=== PATIENT | male | born 1985 | race American Indian/Alaskan Native ===

== ENCOUNTER 2017-02-27 13:58 | Emergency (ER) | payer OTHER ==
[2017-02-27] MEDS ORDERED: NORCO 10/325 PO ONE (16:51)
--- NOTE | 2017-02-27 17:27 | Emergency Department Report ---
ED General Adult HPI - General Chief complaint: Pain General Stated complaint: GROIN PAIN Time Seen by Provider: 02/27/17 16:43 Source: patient Mode of arrival: Ambulatory Limitations: No Limitations - History of Present Illness Initial comments: 31 y/o male complain of right scrotum pain after attempt to lift a rock around 200 lb with 4 other individual .pt state the pain start last night with increase swelling to scrotum area .pt denies taking any otc medication .pt state pain 10/10 at present . Onset/Timin -: days(s) Location: genitals Radiation: non-radiation Severity scale (0 -10): 10 Quality: aching Consistency: constant Improves with: none Worsens with: movement Associated Symptoms: denies: denies other symptoms Treatments Prior to Arrival: none - Related Data Previous Rx's Medication Instructions Recorded Last Taken Type Doxycycline Hyclate [Doxycycline 100 mg PO Q12HR #20 tab 02/27/17 Unknown Rx Hyclate TAB] Ibuprofen [Motrin 800 MG tab] 800 mg PO Q8HR PRN #30 tablet 02/27/17 Unknown Rx Allergies Allergy/AdvReac Type Severity Reaction Status Date / Time No Known Allergies Allergy Unverified 02/27/17 14:33 ED Review of Systems ROS: Stated complaint: GROIN PAIN Other details as noted in HPI Constitutional: denies: chills, fever Eyes: denies: eye pain, eye discharge, vision change ENT: denies: ear pain, throat pain Respiratory: denies: cough, shortness of breath, wheezing Cardiovascular: denies: chest pain, palpitations Endocrine: no symptoms reported Gastrointestinal: denies: abdominal pain, nausea, diarrhea Genitourinary: testicular pain. denies: urgency, dysuria Musculoskeletal: denies: back pain, joint swelling, arthralgia Skin: denies: rash, lesions Neurological: denies: headache, weakness, paresthesias Psychiatric: denies: anxiety, depression Hematological/Lymphatic: denies: easy bleeding, easy bruising ED Past Medical Hx - Past Medical History Previous Medical History?: No - Surgical History Past Surgical History?: No - Social History Smoking Status: Current Every Day Smoker Substance Use Type: Alcohol, Marijuana, Prescribed - Medications Home Medications: Home Medications Medication Instructions Recorded Confirmed Last Taken Type Doxycycline Hyclate [Doxycycline 100 mg PO Q12HR #20 tab 02/27/17 Unknown Rx Hyclate TAB] Ibuprofen [Motrin 800 MG tab] 800 mg PO Q8HR PRN #30 tablet 02/27/17 Unknown Rx ED Physical Exam - General Limitations: No Limitations General appearance: alert, in no apparent distress - Head Head exam: Present: atraumatic, normocephalic - Eye Eye exam: Present: normal appearance - ENT ENT exam: Present: mucous membranes moist - Neck Neck exam: Present: normal inspection - Respiratory Respiratory exam: Present: normal lung sounds bilaterally. Absent: respiratory distress - Cardiovascular Cardiovascular Exam: Present: regular rate, normal rhythm. Absent: systolic murmur, diastolic murmur, rubs, gallop - GI/Abdominal GI/Abdominal exam: Present: soft, normal bowel sounds - Rectal Rectal exam: Present: deferred - exam: Present: testicular tenderness, scrotal swelling External exam: Present: swelling - Extremities Exam Extremities exam: Present: normal inspection - Back Exam Back exam: Present: normal inspection - Neurological Exam Neurological exam: Present: alert, oriented X3 - Psychiatric Psychiatric exam: Present: normal affect, normal mood - Skin Skin exam: Present: warm, dry, intact, normal color. Absent: rash ED Course Vital Signs 02/27/17 14:29 Temperature 99 F Pulse Rate 71 Respiratory 22 Rate Blood Pressure 103/78 O2 Sat by Pulse 100 Oximetry ED Medical Decision Making - Medical Decision Making Ultrasound reading acute right epididymitis pt treat with rocephin 250 mg empirical and will give doxycycline 100 mg for 10 days Pt given norco 10mg for pain .pt state pain has resolved .will give the patient give rx for NSAID UA sent to lab and Gonorrhea and chlaymdia urine sent out Critical care attestation.: If time is entered above; I have spent that time in minutes in the direct care of this critically ill patient, excluding procedure time. ED Disposition Clinical Impression: Epididymitis Disposition: DC-01 TO HOME OR SELFCARE Is pt being admited?: No Does the pt Need Aspirin: No Condition: Stable Instructions: Epididymitis (ED) Prescriptions: Doxycycline Hyclate [Doxycycline Hyclate TAB] 100 mg PO Q12HR #20 tab Ibuprofen [Motrin 800 MG tab] 800 mg PO Q8HR PRN #30 tablet PRN Reason: Pain Referrals: PRIMARY CARE, [Primary Care Provider] - 3-5 Days [facility] [Outside] - 3-5 Days Forms: STI Treatment and Prevention Time of Disposition: 18:32
--- NOTE | 2017-02-27 17:41 | Ultrasound Report ---
FINAL REPORT EXAM: US TESTICULAR DOPPLER COMP HISTORY: right testicle pain TECHNIQUE: Longitudinal and transverse grayscale, color, and Doppler sonographic images of the bilateral testicles were performed Comparison: None FINDINGS: Right testicle measures 4.8 x 2.4 x 3.3 centimeters. Left testicle measures 4.5 x 2.3 x 3.3 centimeters. Both testicles demonstrate homogeneous echogenicity and normal echotexture without intratesticular mass lesion. There is normal color flow. The right epididymal head is enlarged, measuring approximately 2 x 1.4 centimeter and hyperemic. The left epididymal head has normal size and color flow without hyperemia. There is no hydrocele. There are no varicoceles identified. IMPRESSION: Acute right epididymitis. Normal color flow of the right testicle. No evidence for testicular torsion or mass lesion.
[2017-02-27] MEDS ORDERED: XYLOCAINE 1% MPF 5 mL INFILTRATI ONE (18:18)
[2017-02-27] MEDS ORDERED: ROCEPHIN IM ONE (18:18)
[2017-02-27 18:35] LABS: Bilirubin,Urine NEG (Negative); Blood,Urine NEG (Negative); Ketones,Urine TR mg/dL (Negative); Leukocyte Esterase,Urine NEG (Negative); Mucus,Urine 3+ /HPF; Nitrite,Urine NEG (Negative)
[2017-02-27 18:59] VITALS: BP 111/67
== END 2017-02-27 19:03 | disposition home or self-care (01) ==
LOC: ED 13:58
DX: N45.1 Epididymitis (principal); F17.200 Nicotine dependence, unspecified, uncomplicated; F12.10 Cannabis abuse, uncomplicated
CPT/HCPCS: 81001; 93975; 96372; 99284; J0696

== ENCOUNTER 2017-08-12 15:22 | Emergency (ER) | payer SELFPAY ==
[2017-08-12 15:33] VITALS: BP 145/88
[2017-08-12] MEDS ORDERED: CLEOCIN IM ONE (16:56)
[2017-08-12] MEDS ORDERED: MOTRIN PO ONE (16:56)
--- NOTE | 2017-08-12 17:02 | Emergency Department Report ---
ED ENT HPI - General Chief complaint: Dental/Oral Stated complaint: ABSCESSED TOOTH Time Seen by Provider: 08/12/17 16:48 Source: patient Mode of arrival: Ambulatory Limitations: No Limitations - History of Present Illness Initial comments: This is a 31-year-old male nontoxic, well nourished in appearance, no acute signs of distress presents to the ED with c/o of right upper toothache 3 weeks. Patient denies following up with a dentist. Patient stated that pain radiates from his job to his left side of head. Patient otherwise denies any head trauma. Patient describes toothache as aching level of 8 out of 10. Patient denies any facial swelling. Patient denies any numbness, tingling, fever, chills, headache, stiff neck, abdominal pain, chest pain, shortness of breath. Patient denies any drug allergies or significant past medical history. MD complaint: tooth pain -: week(s) (3) Location: tooth # 1 - pain Severity: mild Severity scale (0 -10): 8 Quality: aching Consistency: constant Improves with: none Worsens with: none Context- Dental: history of dental caries, poor dental care Associated Symptoms: gum swelling, toothache. denies: fever, cough, pain with swallowing, sore throat, tinnitus, hearing loss, discharge from ear, rhinorrhea - Related Data Previous Rx's Medication Instructions Recorded Last Taken Type Doxycycline Hyclate [Doxycycline 100 mg PO Q12HR #20 tab 02/27/17 Unknown Rx Hyclate TAB] Ibuprofen [Motrin 800 MG tab] 800 mg PO Q8HR PRN #30 tablet 02/27/17 Unknown Rx Acetaminophen/Codeine [Tylenol 1 tab PO Q6H PRN #15 tab 08/12/17 Unknown Rx /Codeine # 3 tab] Chlorhexidine Mouthwash [Peridex] 15 ml MM BID #1 bottle 08/12/17 Unknown Rx Clindamycin [Clindamycin CAP] 300 mg PO Q6H 7 Days capsule 08/12/17 Unknown Rx Ibuprofen [Motrin] 600 mg PO Q8H PRN #30 tablet 08/12/17 Unknown Rx Allergies Allergy/AdvReac Type Severity Reaction Status Date / Time No Known Allergies Allergy Unverified 02/27/17 14:33 ED Dental HPI - General Chief complaint: Dental/Oral Stated complaint: ABSCESSED TOOTH Time Seen by Provider: 08/12/17 16:48 Source: patient Mode of arrival: Ambulatory Limitations: No Limitations - Related Data Previous Rx's Medication Instructions Recorded Last Taken Type Doxycycline Hyclate [Doxycycline 100 mg PO Q12HR #20 tab 02/27/17 Unknown Rx Hyclate TAB] Ibuprofen [Motrin 800 MG tab] 800 mg PO Q8HR PRN #30 tablet 02/27/17 Unknown Rx Acetaminophen/Codeine [Tylenol 1 tab PO Q6H PRN #15 tab 08/12/17 Unknown Rx /Codeine # 3 tab] Chlorhexidine Mouthwash [Peridex] 15 ml MM BID #1 bottle 08/12/17 Unknown Rx Clindamycin [Clindamycin CAP] 300 mg PO Q6H 7 Days capsule 08/12/17 Unknown Rx Ibuprofen [Motrin] 600 mg PO Q8H PRN #30 tablet 08/12/17 Unknown Rx Allergies Allergy/AdvReac Type Severity Reaction Status Date / Time No Known Allergies Allergy Unverified 02/27/17 14:33 ED Review of Systems ROS: Stated complaint: ABSCESSED TOOTH Other details as noted in HPI Constitutional: denies: chills, fever Eyes: denies: eye pain, eye discharge, vision change ENT: dental pain. denies: ear pain, throat pain Respiratory: denies: cough, shortness of breath, wheezing Cardiovascular: denies: chest pain, palpitations Endocrine: no symptoms reported Gastrointestinal: denies: abdominal pain, nausea, diarrhea Genitourinary: denies: urgency, dysuria Musculoskeletal: denies: back pain, joint swelling, arthralgia Skin: denies: rash, lesions Neurological: denies: headache, weakness, paresthesias Psychiatric: denies: anxiety, depression Hematological/Lymphatic: denies: easy bleeding, easy bruising ED Past Medical Hx - Past Medical History Previous Medical History?: No Hx Hypertension: No Hx CVA: No Hx Heart Attack/AMI: No Hx Congestive Heart Failure: No Hx Diabetes: No Hx Deep Vein Thrombosis: No Hx Pulmonary Embolism: No Hx GERD: No Hx Liver Disease: No Hx Renal Disease: No Hx of Cancer: No Hx Sickle Cell Disease: No Hx Arthritis: No Hx Headaches / Migraines: No Hx Seizures: No Hx Kidney Stones: No Hx Psychiatric Treatment: No Hx Asthma: No Hx COPD: No Hx Tuberculosis: No Hx Dementia: No Hx HIV: No - Surgical History Past Surgical History?: No Hx Coronary Stent: No Hx Open Heart Surgery: No Hx Pacemaker: No Hx Internal Defibrillator: No Hx Cholecystectomy: No Hx Appendectomy: No Hx Breast Surgery: No - Social History Smoking Status: Current Every Day Smoker Substance Use Type: None - Medications Home Medications: Home Medications Medication Instructions Recorded Confirmed Last Taken Type Doxycycline Hyclate [Doxycycline 100 mg PO Q12HR #20 tab 02/27/17 Unknown Rx Hyclate TAB] Ibuprofen [Motrin 800 MG tab] 800 mg PO Q8HR PRN #30 tablet 02/27/17 Unknown Rx Acetaminophen/Codeine [Tylenol 1 tab PO Q6H PRN #15 tab 08/12/17 Unknown Rx /Codeine # 3 tab] Chlorhexidine Mouthwash [Peridex] 15 ml MM BID #1 bottle 08/12/17 Unknown Rx Clindamycin [Clindamycin CAP] 300 mg PO Q6H 7 Days capsule 08/12/17 Unknown Rx Ibuprofen [Motrin] 600 mg PO Q8H PRN #30 tablet 08/12/17 Unknown Rx ED Physical Exam - General Limitations: No Limitations General appearance: alert, in no apparent distress - Head Head exam: Present: atraumatic, normocephalic - Eye Eye exam: Present: normal appearance Pupils: Present: normal accommodation - ENT ENT exam: Present: mucous membranes moist, TM's normal bilaterally, normal external ear exam - Expanded ENT Exam Expanded Ear exam: Present: normal external inspection Mouth exam: Present: normal external inspection, tongue normal. Absent: drooling, trismus, muffled voice, tongue elevation, laceration Teeth exam: Present: normal inspection, dental caries, fractured tooth #, dental tenderness #, gingival enlargement, other (Slight facial swelling with no induration or flutance noted.) Throat exam: Positive: normal inspection, other (Uvula midline.). Negative: tonsillar erythema, tonsillomegaly, tonsillar exudate, R peritonsillar mass, L peritonsillar mass - Neck Neck exam: Present: normal inspection, full ROM. Absent: tenderness, meningismus, lymphadenopathy - Respiratory Respiratory exam: Present: normal lung sounds bilaterally. Absent: respiratory distress - Cardiovascular Cardiovascular Exam: Present: regular rate, normal rhythm. Absent: systolic murmur, diastolic murmur, rubs, gallop - GI/Abdominal GI/Abdominal exam: Present: soft, normal bowel sounds - Rectal Rectal exam: Present: deferred - Extremities Exam Extremities exam: Present: normal inspection - Back Exam Back exam: Present: normal inspection - Neurological Exam Neurological exam: Present: alert, oriented X3 - Psychiatric Psychiatric exam: Present: normal affect, normal mood - Skin Skin exam: Present: warm, dry, intact, normal color. Absent: rash ED Course Vital Signs 08/12/17 15:28 Temperature 99.1 F Pulse Rate 69 Respiratory 20 Rate Blood Pressure 145/88 Blood Pressure 145/88 [Right] O2 Sat by Pulse 98 Oximetry - Reevaluation(s) Reevaluation #1: 08/12/17 16:58 Patient is speaking in full sentences with no signs of distress noted. ED Medical Decision Making - Medical Decision Making This is a 31-year-old male that presents with gingivitis and dental caries. Patient is stable and was examined by me. There is slight swelling to the right lower mandible. I used 18-gauge hypo-with 10 mL syringe and try to aspirate in the right gingival area to make sure this was an abscess and no prominent drainage has been noted. I did give patient clindamycin 600 mg IM in the ED and patient is discharged with clindamycin. He had strict instructions to follow-up with oral maxillary surgeon in 24 hours or if symptoms would worsen to return to emergency room as was possible. Patient is discharged with Ultram, Peridex and Clinda. Patient was instructed not to operate any machinery when taking Ultram due to drowsiness. At time of discharge, the patient does not seem toxic or ill in appearance. No acute signs of distress noted. Patient agrees to discharge treatment plan of care. No further questions noted by the patient. Critical care attestation.: If time is entered above; I have spent that time in minutes in the direct care of this critically ill patient, excluding procedure time. ED Disposition Clinical Impression: Dental caries, Gingivitis Disposition: TO HOME OR SELFCARE Is pt being admited?: No Does the pt Need Aspirin: No Condition: Stable Instructions: Dental Caries (ED), Gingivitis (ED), Acetaminophen/Codeine (By mouth), Ibuprofen (By mouth), Clindamycin (By mouth) Additional Instructions: Follow-up with a oral maxillary surgeon in 24 hours or if symptoms worsen and continue return to emergency room as soon as possible. [facility] [employer] Address: [facility] [address], [place] [address] Hours: 8AM1PM, Wednesday 7APM Wednesday Closed Wednesday Closed Wednesday 8AM1PM, 25Wednesday 8AM1PM, 25Wednesday 8AM1PM, 25PM Suggest an edit Prescriptions: Acetaminophen/Codeine [Tylenol /Codeine # 3 tab] 1 tab PO Q6H PRN #15 tab PRN Reason: Pain Chlorhexidine Mouthwash [Peridex] 15 ml MM BID #1 bottle Clindamycin [Clindamycin CAP] 300 mg PO Q6H 7 Days capsule Ibuprofen [Motrin] 600 mg PO Q8H PRN #30 tablet PRN Reason: Pain Referrals: PRIMARY CARE, [Referring] - 3-5 Days RYAN KENT MD [Staff Physician] - 3-5 Days [facility] [Outside] - 3-5 Days Forms: Work/School Release Form(ED)
== END 2017-08-12 17:48 | disposition home or self-care (01) ==
LOC: ED 15:22
DX: K02.9 Dental caries, unspecified (principal); K05.10 Chronic gingivitis, plaque induced; F17.200 Nicotine dependence, unspecified, uncomplicated
CPT/HCPCS: 96372; 99282